=== PATIENT | male | born 1990 | race Two or more races ===

== ENCOUNTER 2017-10-25 16:16 | Emergency (ER) | payer OTHER ==
--- NOTE | 2017-10-25 16:35 | EDM.PDOC ---
ED HPI GENERAL MEDICAL PROBLEM - General Chief Complaint: Lower Extremity Injury/Pain Stated Complaint: LEFT FOOT PAIN Time Seen by Provider: 10/25/17 16:20 Source of Information: Reports: Patient History Limitations: Reports: No Limitations - History of Present Illness INITIAL COMMENTS - FREE TEXT/NARRATIVE: HISTORY AND PHYSICAL: History of present illness: Patient is a 27-year-old male who is brought to the emergency room with complaints of left foot pain after heavy pipe had fallen onto it. He states he was wearing steel toed boots during this injury. Soft tissue swelling and pain noted to the anterior left mid foot. He is able to wiggle his toes and has good flexion and extension of the foot. Good sensation. Capillary refill less than 3 seconds. He was ambulatory although it did cause him pain. Denies any previous injury or trauma to the affected extremity. Tetanus is up-to-date Review of systems: As per history of present illness and below otherwise all systems reviewed and negative. Past medical history: As per history of present illness and as reviewed below otherwise noncontributory. Surgical history: As per history of present illness and as reviewed below otherwise noncontributory. Social history: No reported history of drug or alcohol abuse. Family history: As per history of present illness and as reviewed below otherwise noncontributory. Physical exam: General: Well-developed and well-nourished 27-year-old -[place] male. Alert and oriented. Nontoxic appearing and in no acute distress. HEENT: Atraumatic, normocephalic, pupils equal and reactive bilaterally, negative for conjunctival pallor or scleral icterus, mucous membranes moist, throat clear, neck supple, nontender, trachea midline. No drooling or trismus noted. No meningeal signs Lungs: Clear to auscultation, breath sounds equal bilaterally, chest nontender. Heart: S1S2, regular rate and rhythm without overt murmur Abdomen: Soft, nondistended, nontender. Negative for masses or hepatosplenomegaly. Negative for costovertebral tenderness. Pelvis: Stable nontender. Genitourinary: Deferred. Rectal: Deferred. Skin: Soft tissue swelling noted to the left anterior mid foot area otherwise skin is Intact, warm, dry. No lesions or rashes noted. Extremities: Moves all extremities per self without difficulty or deficits. Pain with palpation to the mid foot on the left. Strong pedal pulse. Capillary refill less than 3 seconds. No involvement from the mid foot up which also includes the ankle and quesada. He is negative for cords or calf pain. Neurovascular unremarkable. Neuro: Awake, alert, oriented. Cranial nerves II through XII unremarkable. Cerebellum unremarkable. Motor and sensory unremarkable throughout. Exam nonfocal. Notes: X-ray shows no acute osseous injury or abnormalities. There is punctate noted at the soft tissue densities near the base of the second and third digits. Skin is intact at this site therefore I'm not suspicious for any foreign bodies. I will place the patient in a cam walker boot and give him crutches for ambulation. Encouraged him to follow-up with the dredge pump operator. Tylenol ibuprofen for pain management. Tramadol for nighttime use, #10, no refill. Diagnostics: Xray Therapeutics: Ice, CAM walker boot, crutches Impression: Left foot injury Plan: 1. Rest, ice, elevate the extremity. Use the cam walker boot and crutches as needed. 2. Tylenol and/or ibuprofen for daytime use for pain management. You may use the tramadol for evening use. This medication may cause drowsiness a do not take it will driving her needing to be functioning outside of the house. 3. Please follow-up with the dredge pump operator as we discussed. Return to the ED as needed and as discussed. Definitive disposition and diagnosis as appropriate pending reevaluation and review of above. Left Feet Pain Score (Numeric/FACES): 8 - Related Data Allergies Allergy/AdvReac Type Severity Reaction Status Date / Time No Known Allergies Allergy Verified 10/25/17 16:40 Home Meds: Home Meds . [No Known Home Meds] 10/25/17 [History] Review of Systems - Review of Systems Review Of Systems: ROS reveals no pertinent complaints other than HPI. ED EXAM, GENERAL - Physical Exam Exam: See Below (See dictation) Course - Vital Signs Last Recorded V/S: Last Vital Signs Temp 97.9 F 10/25/17 16:38 Pulse 103 H 10/25/17 16:38 Resp 18 10/25/17 16:38 BP 147/104 H 10/25/17 16:38 Pulse Ox 97 10/25/17 16:38 - Orders/Labs/Meds Orders: Active Orders 24 hr Category Date Time Status Foot 2V Lt [CR] Stat Exams 10/25/17 16:33 Taken Departure - Departure Time of Disposition: 17:02 Disposition: Home, Self-Care 01 Clinical Impression: Injury of left foot Qualifiers: Encounter type: initial encounter Qualified Code(s): S99.922A - Unspecified injury of left foot, initial encounter - Discharge Information Referrals: PCP,None [Primary Care Provider] - Forms: ED Department Discharge Additional Instructions: The following information is given to patients seen in the emergency department who are being discharged to home. This information is to outline your options for follow-up care. We provide all patients seen in our emergency department with a follow-up referral. The need for follow-up, as well as the timing and circumstances, are variable depending upon the specifics of your emergency department visit. If you don't have a primary care physician on staff, we will provide you with a referral. We always advise you to contact your personal physician following an emergency department visit to inform them of the circumstance of the visit and for follow-up with them and/or the need for any referrals to a consulting specialist. The emergency department will also refer you to a specialist when appropriate. This referral assures that you have the opportunity for follow-up care with a specialist. All of these measure are taken in an effort to provide you with optimal care, which includes your follow-up. Under all circumstances we always encourage you to contact your private physician who remains a resource for coordinating your care. When calling for follow-up care, please make the office aware that this follow-up is from your recent emergency room visit. If for any reason you are refused follow-up, please contact the [facility] Emergency Department at and asked to speak to the emergency department charge nurse. [facility] [address] [place] [id number] [address] 1. Rest, ice, elevate the extremity. Use the cam walker boot and crutches as needed. 2. Tylenol and/or ibuprofen for daytime use for pain management. You may use the tramadol for evening use. This medication may cause drowsiness a do not take it will driving her needing to be functioning outside of the house. 3. Please follow-up with the dredge pump operator as we discussed. Return to the ED as needed and as discussed. - My Orders Last 24 Hours: My Active Orders 10/25/17 16:33 Foot 2V Lt [CR] Stat - Assessment/Plan Last 24 Hours: My Active Orders 10/25/17 16:33 Foot 2V Lt [CR] Stat
--- NOTE | 2017-10-26 15:04 | CR ---
EXAM DATE: 10/25/17 PATIENT'S AGE: 27 Patient: KALYANI GRANADOS Facility: [place], [place] Site . Site : 1990 Study: XRay Extremity Left foot [id number]/[id number] 4:51:59 PM Ordering Physician: Doctor Manning Final Report: INDICATION: Crushing foot injury TECHNIQUE: Foot radiograph 2 views left COMPARISON: None FINDINGS: Bones: No acute fractures or aggressive bone lesions are identified. Joints: The visualized hindfoot, midfoot, and forefoot joints are unremarkable in appearance. No significant ankle effusion is seen. Soft tissue: Moderate soft tissue swelling is seen over the dorsum of the forefoot. There are punctate soft tissue densities near the base of the 2nd and 3rd digits. No radiopaque foreign bodies are seen. IMPRESSIONS: 1. No acute osseous injuries or abnormalities are noted. 2. There are punctate soft tissue densities near the base of the 2nd and 3rd digits. Clinical correlation would be helpful to distinguish between overlying artifacts, small foreign bodies, or soft tissue calcifications. Dictated by Ortiz Tang MD @ 10/25/2017 4:54:08 PM Dictated by: Ortiz Tang MD @ 10/25/2017 16:54:20 (Electronic Signature) Report Signed by Proxy. BEBE
== END 2017-10-25 17:20 | disposition home or self-care (01) ==
LOC: MW.ED 16:16
DX: S99.922A Unspecified injury of left foot, initial encounter (principal); W20.8XXA Other cause of strike by thrown, projected or falling object, initial encounter; Y99.0 Civilian activity done for income or pay
CPT/HCPCS: 73620-26-LT; 73620-LT; 99283